=== PATIENT | male | born 1935 | race Asian ===

== ENCOUNTER 2018-08-31 16:46 | Emergency (ER) | payer OTHER ==
[~2018-08-31] VITALS: Ht 172.7 cm; Wt 74.8 kg
[2018-08-31 17:10] VITALS: BP_SYST 166
--- NOTE | 2018-08-31 17:18 | NUR ---
Patient to ER bed 5 to gown for evaluation. Side rails up. Report given to Tung GARIBAY.
--- NOTE | 2018-08-31 17:25 | NUR ---
Pt complaining of right thumb pain 3/, stated he closed a door on his finger last night. No complaint of other injury, n/s or SOB.
--- NOTE | 2018-08-31 17:30 | NUR ---
ER Dr. Kerr at bedside examining patient.
--- NOTE | 2018-08-31 18:15 | NUR ---
Patient given written and verbal discharge instructions and verbalizes understanding. ER MD Kerr discussed with patient the results and treatment provided. Patient in stable condition. ID arm band removed. Rx of Tylenol given. Patient educated on pain management and to follow up with PMD. Pain Scale 0. Opportunity for questions provided and answered. Medication side effect fact sheet provided.
[2018-08-31 18:16] VITALS: BP_SYST 159
== END 2018-08-31 18:16 | disposition home or self-care (01) ==
LOC: SED 16:46
DX: S60.111A Contusion of right thumb with damage to nail, initial encounter (principal); E11.9 Type 2 diabetes mellitus without complications; R03.0 Elevated blood-pressure reading, without diagnosis of hypertension; W23.0XXA Caught, crushed, jammed, or pinched between moving objects, initial encounter; Y93.89 Activity, other specified; Y92.89 Other specified places as the place of occurrence of the external cause; Y99.8 Other external cause status
CPT/HCPCS: 73140-TC; 99283

== ENCOUNTER 2022-05-08 21:25 | Inpatient (IN) | payer OTHER ==
[~2022-05-08] VITALS: Ht 165.1 cm; Wt 86.2 kg
[2022-05-08 21:52] VITALS: BP_SYST 183
--- NOTE | 2022-05-08 22:09 | NUR ---
PT HERE ACCOMPANIED BY FAMILY MEMBER C/O URINARY RETENTION >8 HRS PRIOR TO ER ARRIVAL. PER FAMILY PT BOWMAN CATH REMOVE TODAY AND WAS TOLD TO GO TO ER IF NOT URINATE IN 8 HRS. PWER PT HE HAS THE URGE TO PEE AND NOTHING IS COMING OUT. PMH:HTN,DM,ENLARGE PROSTATE PT AAOX4, NO SOB NOTED AND NAD AT THIS TIME. PENDING MD CHAUDHRY
--- NOTE | 2022-05-08 22:48 | NUR ---
Patient to ER bed 4 to gown for evaluation. Side rails up. Report given to CARLOS EDUARDO GARIBAY(REG).
--- NOTE | 2022-05-08 22:59 | NUR ---
ER Dr.DELA GUIDRY at bedside examining patient.
--- NOTE | 2022-05-08 23:00 | NUR ---
# 16 FR Brooks catheter with use of sterile technique. Immediate return of 100cc YELLOW urine noted. Bedside drainage bag placed below level of bladder. Urine sample collected and sent to lab. Pt tolerated procedure . Patient arrived with brooks in place, changed due to standard of practice prior to admission. Patient unable to toilet self.
--- NOTE | 2022-05-08 23:37 | NUR ---
COVID/INFLUENZA SWAB COLLECTED AND SENT TO LAB.
[2022-05-08 23:45] LABS: BILIRUBIN,URINE NEGATIVE (NEGATIVE); BLOOD, URINE 3+ (NEGATIVE); CLARITY/URINE CLEAR (CLEAR); COLOR,URINE YELLOW (YELLOW); GLUCOSE,URINE NEGATIVE (NEGATIVE); KETONES,URINE NEGATIVE (NEGATIVE); LEUKOCYTE ESTERASE ,URINE NEGATIVE (NEGATIVE); NITRITE, URINE NEGATIVE (NEGATIVE); PROTEIN URINE NEGATIVE (NEGATIVE); UROBILINOGEN,URINE 0.2 (0.2-1.0)
[2022-05-09 00:51] LABS: BACTERIA,URINE FEW /HPF (None Seen); MUCUS,URINE None Seen /LPF (None Seen)
[2022-05-09 00:55] LABS: BASOPHILS # (AUTO) 0.1 K/uL (0.0-0.2); BASOPHILS % (AUTO) 0.7 % (0.0-2.0); EOSINOPHILS # (AUTO) 0.1 K/uL (0.0-0.4); EOSINOPHILS % (AUTO) 0.7 % (0.0-4.0); HEMATOCRIT 32.6 % (36-54); LYMPHOCYTES # (AUTO) 0.4 K/uL (1.0-5.5); LYMPHOCYTES % (AUTO) 3.1 % (20.5-51.5); MEAN CORPUSCULAR HEMOGLOBIN 30 pg (27-31); MEAN CORPUSCULAR HGB CONC 34 % (32-36); MEAN CORPUSCULAR VOLUME 90 fL (79.0-98.0); MONOCYTES # (AUTO) 0.3 K/uL (0.0-1.0); MONOCYTES % (AUTO) 2.8 % (1.7-9.3); NEUTROPHILS # (AUTO) 11.4 K/uL (1.8-7.7); NEUTROPHILS % (AUTO) 92.7 % (40.0-70.0); PLATELET COUNT (AUTO) 256 K/uL (130-430); RED BLOOD CELL COUNT(AUTO) 3.63 MIL/uL (4.2-6.2); RED CELL DISTRIBUTION WIDTH 12.6 % (9.0-15.0); WHITE BLOOD COUNT (AUTO) 12.3 K/uL (4.8-10.8)
[2022-05-09] MEDS ORDERED: ONDA-8 TL (01:46)
[2022-05-09] MEDS ORDERED: CEPH-548 PO (01:46)
[2022-05-09 02:26] LABS: ANION GAP 10 (5-15); CALCIUM 8.7 mg/dL (8.4-11.0); CHLORIDE 86 mmol/L (98-107); CREATININE 1.38 mg/dL (0.55-1.30); GLUCOSE 207 mg/dL (70-99); TOTAL BILIRUBIN 0.5 mg/dL (0.0-1.0); UREA NITROGEN, BLOOD 33 mg/dL (8-21)
[2022-05-09 02:27] LABS: ALANINE AMINOTRANSFERASE 23 U/L (12-78); ALBUMIN 3.4 g/dL (3.4-4.8); ASPARTATE AMINOTRANSFERASE 26 U/L (10-37)
[2022-05-09] MEDS ORDERED: NACL 0.9% 1,000 ML IV ONE (02:45)
[2022-05-09] MEDS ORDERED: cefTRIAXone 1 GM in D5W 50 ML IV ONE (03:15)
--- NOTE | 2022-05-09 03:16 | NUR ---
# 20 gauge angiocath placed to L AC. Use of asceptic technique. Opsite placed over site. Blood return noted.Flushed with 10 cc of normal saline. No evidence of infiltration noted. Patient tolerated well.
[2022-05-09] MEDS ORDERED: ASPIRIN 325 MG TABLET PO ONE (03:45)
[2022-05-09] MEDS ORDERED: cefTRIAXone 1 GM VIAL ONE ×2 (03:45→12:00)
--- NOTE | 2022-05-09 06:25 | NUR ---
Admit bed requested Patient will be admitted to care of . Admitted to TELE unit. Diagnosis: HYPONATREMIA Inpatient: Yes Observation : No Orientation concerns or request close to nursing station: NO Covid Status: NEGATIVE On vent or bipap: NO Isolation requirements: NO Needs a sitter: NO From Home: Yes Requires Dialysis: No Med Rec Completed: Yes
[2022-05-09] MEDS ORDERED: NACL 0.9% 1,000 ML IV SCH (07:00)
--- NOTE | 2022-05-09 07:12 | NUR ---
REPORT GIVEN TO LANI POWERS TO ASSUME CARE.
--- NOTE | 2022-05-09 07:23 | NUR ---
Received report from LANI Alejo. Patient appears in no acute distress at this time, VSS. Care to be given as ordered by provider.
[2022-05-09 07:44] LABS: ANION GAP 6 (5-15); CALCIUM 8.2 mg/dL (8.4-11.0); CHLORIDE 94 mmol/L (98-107); CREATININE 1.23 mg/dL (0.55-1.30); GLUCOSE 141 mg/dL (70-99); UREA NITROGEN, BLOOD 27 mg/dL (8-21)
[2022-05-09 07:50] LABS: ALANINE AMINOTRANSFERASE 19 U/L (12-78); ALBUMIN 2.9 g/dL (3.4-4.8); ASPARTATE AMINOTRANSFERASE 23 U/L (10-37); TOTAL BILIRUBIN 0.2 mg/dL (0.0-1.0)
--- NOTE | 2022-05-09 11:51 | NUR ---
Patient's Daughter Amelia
[2022-05-09] MEDS ORDERED: cefTRIAXone 1 GM in D5W 50 ML IV SCH (13:00)
[2022-05-09 14:11] VITALS: BP_SYST 103
[2022-05-09 14:13] VITALS: BP_SYST 100
--- NOTE | 2022-05-09 14:32 | NUR ---
Patient given written and verbal discharge instructions and verbalizes understanding. ER DR. TAZ MD discussed with patient the results and treatment provided. Patient in stable condition. ID arm band removed. IV catheter removed intact and dressing applied, no active bleeding. Rx of KELFEX, ONDANSETRON given. Patient educated on pain management and to follow up with PMD. Pain Scale 0/10. Opportunity for questions provided and answered. Medication side effect fact sheet provided.
[2022-05-11] MEDS ORDERED: TOLVAPTAN Non-Formulary 15 MG TABLET PO ONE (18:00)
== END 2022-05-11 14:32 | disposition home or self-care (01) | DRG 872 ==
LOC: SED 21:25 → STU 05-09 06:17
PROVIDERS: ADMIT Internal Medicine; ATTEND Internal Medicine
PROC: 0T9B70Z Drainage of Bladder with Drainage Device, Via Natural or Artificial Opening (ICD-10-PCS; principal; 2022-05-09)
DX: A41.9 Sepsis, unspecified organism (principal); E87.1 Hypo-osmolality and hyponatremia; N13.8 Other obstructive and reflux uropathy; I24.8 Other forms of acute ischemic heart disease; N17.9 Acute kidney failure, unspecified; N40.1 Benign prostatic hyperplasia with lower urinary tract symptoms; E78.5 Hyperlipidemia, unspecified; I12.9 Hypertensive chronic kidney disease with stage 1 through stage 4 chronic kidney disease, or unspecified chronic kidney disease; Z20.822 Contact with and (suspected) exposure to COVID-19; E11.22 Type 2 diabetes mellitus with diabetic chronic kidney disease; N18.30 Chronic kidney disease, stage 3 unspecified; Z86.73 Personal history of transient ischemic attack (TIA), and cerebral infarction without residual deficits; Z79.899 Other long term (current) drug therapy; Z79.84 Long term (current) use of oral hypoglycemic drugs
CPT/HCPCS: 36415; 71045; 80051; 80053; 81000; 83735; 83880; 83930; 83935; 84302; 84484; 85025; 87040; 93005; 96361; 96365; 96366; 99291; 99292; G0378; J0696; J7060